=== PATIENT | female | born 1940 | race Caucasian/White ===

== ENCOUNTER 2018-12-02 07:46 | Emergency (ER) | payer OTHER ==
[2018-12-02 07:58] VITALS: BMI 23.4
--- NOTE | 2018-12-02 08:16 | PDOC ---
Attending Attestation - Resident Resident Name: Namita Borja - ED Attending Attestation I have performed the following: I have examined & evaluated the patient, The case was reviewed & discussed with the resident, I agree w/resident's findings & plan, Exceptions are as noted - HPI HPI: 12/02/18 08:39 78yo female with sinus congestion, L ear pain, dry cough x 2 weeks. States she took a course of abx at the beginning prescribed by her PMD - Dr. Veliz, which did not improve her symptoms. States she is also using a nasal spray, which helps her nasal congestion, but not the cough. Pt states cough is dry. NO f/c. No abd pain. No n/v/d. No dysuria. No freire. No cp/sob. Pt is nontoxic in appearance. C/o sore throat only when coughing. Pt c/o L ear fullness and pain x 2 weeks. Pt c/o sinus congestion and sinus pressure 12/02/18 09:36 - Physicial Exam PE: 12/02/18 09:36 Gen: aaox3, persian speaking, nad heent: PERRL, EOMI, nares with mild bogginess, TM intact no erythema or bulging or fluid, post pharynx clear- no erythema or exudates, frontal sinus ttp on palpation heart: +s2s2 reg lungs: cta b/l abd: soft, nt/nd +bs ext: no c/c/e neuro: grossly intact - Medical Decision Making 12/02/18 08:16 I, Dr. Celina Preston, DO, attest that this document has been prepared under my direction and personally reviewed by me in its entirety. I further attest, that it accurately reflects all work, treatment, procedures and medical decision -making performed by me. 12/02/18 09:38 a/p: 78yo female with cough- nonprodructive, sinus pressure, L ear pain -suspect L ear pain from sinus congestion and eustacian tube dysfunction- no acute otitis media or otitis externa -dry cough, will give albuterol -sick x 2 weeks, no fever, low suspicion for flu-out of the window for treatment , poss partially treated pna- will obtain xray -labs -ekg -will monitor and reassess 12/02/18 09:57 re-eval: cxr clear lungs cta pt feeling better discussed follow up with her PMD on Tuesday discussed all reasons to return to the ED will give albuterol inhaler for mild RAD with viral syndrome and bronchial cough discussed fluid intake and staying hydrated pt is nontoxic in appearance 12/02/18 09:59 repeat pulse ox 98% HR 100, but after albuterol Heart Score/ECG Review - ECG Intrepretation Comment:: 12/02/18 09:40 sinus at 95, nl axis, nl interval, pvc, no acute st/t wave findings
[2018-12-02] MEDS ORDERED: SODIUM CHLORIDE 0.9% 1000 ML INFUS.BAG IV ONE (08:18)
[2018-12-02] MEDS ORDERED: ALBUTEROL SO4 2.5/IPRATROPIUM 0.5 INH SOL 3 ML VIAL.NEB. NEB ONE ×2 (08:19→08:21)
--- NOTE | 2018-12-02 08:27 | PDOC ---
History of Present Illness - General Stated Complaint: COUGH Time Seen by Provider: 12/02/18 07:58 History Source: Patient - History of Present Illness Initial Comments: 12/02/18 08:23 Patient is a 78 y/o female with a history of HTN, HLD, and anemia who presents for cough. She reports she has been having this cough for two weeks. Her PCP gave her an antibiotic a week ago but it did not help. She also feels like she has sinus pressure and her left ear is clogged. She was feeling feverish. The cough is dry and she has some abdominal pain when she is coughing a lot. She denies any sick contacts. Denies nausea, vomiting, chest pain, diarrhea, or constipation. Past History - Past Medical History Allergies/Adverse Reactions: Allergies Allergy/AdvReac Type Severity Reaction Status Date / Time No Known Allergies Allergy Verified 12/02/18 07:58 Home Medications: Ambulatory Orders Albuterol Sulfate Inhaler - [Ventolin HFA Inhaler -] 1 - 2 inh PO Q4H #1 inhaler 12/02/18 Guaifenesin [Robitussin] 5 ml PO Q4H #2 cup 12/02/18 - Suicide/Smoking/Psychosocial Hx Smoking History: Never smoked Have you smoked in the past 12 months: No Information on smoking cessation initiated: No Hx Alcohol Use: No Drug/Substance Use Hx: No Review of Systems - Review of Systems Constitutional: Yes: Fever. No: Chills HEENTM: No: Eye Pain Respiratory: Yes: Cough. No: Shortness of Breath Cardiac (ROS): No: Chest Pain ABD/GI: No: Abdominal Distended, Constipated, Diarrhea, Nausea, Vomiting Musculoskeletal: No: Back Pain Neurological: No: Headache *Physical Exam - Vital Signs Last Vital Signs Temp Pulse Resp BP Pulse Ox 98.2 F 104 H 18 136/69 97 12/02/18 07:52 12/02/18 07:52 12/02/18 07:52 12/02/18 07:52 12/02/18 07:52 - Physical Exam Comments: 12/02/18 08:25 GENERAL: A&O x3, no acute distress HEENT: sinus pressure, R ear clear, L ear mildly erythematous, pharynx non erythematous NECK: no lymphadema HEART: RRR, no murmurs, rubs, or gallops LUNGS: CTAL B/L ABD: soft, non distended, non tender EXTREMITIES: no pitting edema SKIN: no rashes or ulcers noted ED Treatment Course - LABORATORY CBC & Chemistry Diagram: 12/02/18 08:44 12/02/18 08:44 - Medications Given in the ED: ED Medications Discontinued Medications Generic Name Dose Route Start Last Admin Trade Name Tim PRN Reason Stop Dose Admin Albuterol/Ipratropium 1 amp 12/02/18 08:19 12/02/18 08:20 Duoneb - NEB 12/02/18 08:20 1 amp ONCE ONE Administration Sodium Chloride 500 ml 12/02/18 08:18 12/02/18 08:20 Normal Saline - IV 12/02/18 08:19 500 ml ONCE ONE Administration Medical Decision Making - Medical Decision Making 12/02/18 08:27 albuterol treatment, f/u labs and CXR 12/02/18 09:38 CXR clear, WBC 10.2 12/02/18 10:24 CMP normal, likely viral illness medication for symptomatic relief and DC *DC/Admit/Observation/Transfer Diagnosis at time of Disposition: URI (upper respiratory infection) Qualifiers: URI type: unspecified viral URI Qualified Code(s): J06.9 - Acute upper respiratory infection, unspecified - Discharge Dispostion Condition at time of disposition: Guarded - Prescriptions Prescriptions: Albuterol Sulfate Inhaler - [Ventolin HFA Inhaler -] 1 - 2 inh PO Q4H #1 inhaler Guaifenesin [Robitussin] 5 ml PO Q4H #2 cup - Referrals Referrals: Magda Veliz MD [Primary Care Provider] - - Patient Instructions Printed Discharge Instructions: DI for Viral Upper Respiratory Infection -- Adult Additional Instructions: You came to the hospital for a cough. We took imaging ( Xray) of your lungs and you do not have an infection in your lungs. You likely have an viral infection that is causing the cough.This infection will resolve on its own. To help with the cough please take: Robitussin AC 5mL by mouth every 4 hours as needed, do not exceed 20 mL a day Albuterol inhaler, 1 puff by mouth every 4 hours as needed Please make an appointment with your primary care doctor in one week to follow up. Please return to the Emergency Department if you have chest pain, nausea, vomiting, diarrhea, shortness of breath, or dizziness. En Espanol Viniste al hospital por efrain tos. Tomamos imgenes (kip X) de ashok pulmones y usted no tiene efrain infeccin en los pulmones. Es probable que tenga efrain infeccin viral que est causando la tos. Esta infeccin se resolver por s jericho. Para ayudar con la tos por favor tome: Robitussin AC 5 ml por va oral cada 4 horas segn sea necesario, no exceda los 20 ml al da Inhalador de albuterol, 1 inhalacin por va oral cada 4 horas segn sea necesario Por favor daniel efrain poncho con garzon mdico de atencin primaria en efrain semana para darle seguimiento. Regrese al Departamento de Emergencias si tiene dolor en el pecho, nuseas, vmitos, diarrea, falta de aliento o mareos. - Post Discharge Activity
[2018-12-02] MEDS ORDERED: ACETAMINOPHEN 500 MG TABLET (FP) PO ONE (08:41)
[2018-12-02] MEDS ORDERED: ACETAMINOPHEN 325 MG TABLET (FP) PO ONE (08:50)
[2018-12-02 09:16] LABS: EOS % 0.9 % (0-4.5); HEMATOCRIT 36.8 % (32.4-45.2); LYMPH % 10.6 % (8-40); MCH 24.5 pg (25.7-33.7); MCHC 32.6 g/dl (32.0-36.0); MEAN CELL VOLUME 75.1 fl (80-96); MEAN PLT VOLUME 9.2 fl (7.5-11.1); MONO % 7.3 % (3.8-10.2); NEUT % 80.2 % (42.8-82.8); PLATELET COUNT 263 K/MM3 (134-434); RDW 14.6 % (11.6-15.6); WHITE BLOOD COUNT 10.2 K/mm3 (4.0-10.0)
[2018-12-02 09:38] LABS: ALBUMIN 3.6 g/dl (3.4-5.0); ALK PHOS 65 U/L (45-117); ANION GAP 8 MMOL/L (8-16); BILIRUBIN,TOTAL 0.2 mg/dL (0.2-1); BLOOD UREA NITROGEN 11 mg/dL (7-18); CALCIUM 9.1 mg/dL (8.5-10.1); CHLORIDE 106 mmol/L (98-107); CO2 27 mmol/L (21-32); CREATININE 0.7 mg/dL (0.55-1.3); GLUCOSE,RANDOM 78 mg/dL (74-106); MAGNESIUM 2.1 mg/dL (1.8-2.4); POTASSIUM 4.1 mmol/L (3.5-5.1); SGOT/AST 16 U/L (15-37); SGPT/ALT 22 U/L (13-61); SODIUM 140 mmol/L (136-145); TOT PROT 6.9 g/dl (6.4-8.2)
[2018-12-02 10:00] VITALS: BP 119/63; PULSE 100; TEMP 98.6
--- NOTE | 2018-12-04 10:24 | EKG ---
Test Reason : Blood Pressure : / mmHG Vent. Rate : 095 BPM Atrial Rate : 095 BPM P-R Int : 122 ms QRS Dur : 082 ms QT Int : 336 ms P-R-T Axes : 075 034 035 degrees QTc Int : 422 ms SINUS RHYTHM WITH OCCASIONAL PREMATURE VENTRICULAR COMPLEXES OTHERWISE NORMAL ECG NO PREVIOUS ECGS AVAILABLE Confirmed by JARRETT SOLANO MD ([id number]) on 12/04/2018 10:24:10 AM Referred By: Confirmed By:JARRETT SOLANO MD
== END 2018-12-02 10:24 | disposition home or self-care (01) ==
LOC: JER 07:46
PROC: 3E0F7GC Introduction of Other Therapeutic Substance into Respiratory Tract, Via Natural or Artificial Opening (ICD-10-PCS; principal; 2018-12-02)
DX: J06.9 Acute upper respiratory infection, unspecified (principal); B97.89 Other viral agents as the cause of diseases classified elsewhere; I10 Essential (primary) hypertension; E78.5 Hyperlipidemia, unspecified
CPT/HCPCS: 36415; 71046-TC-FY; 80053; 83735; 85025; 93005; 93010; 94640; 99282-25; J7030

== ENCOUNTER → 2019-06-25 | Day surgery (SDC) | payer OTHER ==
--- NOTE | 2019-06-26 17:46 | PATH ---
Surgical Pathology Report Patient Name: DEIRDRE IQBAL [facility]. Rec. #: [id number] /Age/Gender: 1940 (Age: 78) / F Account: [id number] Location: RAD[facility]OLOGY [facility] Taken: 06/25/2019 Received: 06/25/2019 Reported: 06/26/2019 Physicians: Ya Arndt M.D. Specimen(s) Received BREAST CORE BIOPSY Clinical History Nonpalpable lesion Ultrasound findings: Probably benign Final Diagnosis LEFT BREAST 12-1:00, 0.95 CM SOLID MASS, ULTRASOUND GUIDED CORE BIOPSY: BENIGN BREAST TISSUE WITH USUAL DUCTAL HYPERPLASIA (UDH), STROMAL FIBROSIS, AND FIBROADENOMATOID CHANGE. Electronically Signed Gill Granados M.D. Gross Description Received in formalin labeled "left 12:30," are 4 santos-yellow, cylindrical portions of fibroadipose tissue ranging from 0.5-1.1 cm in length and averaging 0.1 cm in diameter. The specimens are submitted in toto in one cassette. Time to formalin fixation: Less than one minute Total formalin fixation time: Approximately 7 hours. /06/25/2019 saudi/06/25/2019
== END | disposition home or self-care (01) ==
LOC: JRADUS-SUR 10:30 → JRAD 10:30
PROVIDERS: ATTEND Internal Medicine
PROC: 0HBU3ZX Excision of Left Breast, Percutaneous Approach, Diagnostic (ICD-10-PCS; principal; 2019-06-25)
DX: N60.12 Diffuse cystic mastopathy of left breast (principal); N60.31 Fibrosclerosis of right breast; N60.82 Other benign mammary dysplasias of left breast; N64.89 Other specified disorders of breast; N63.21 Unspecified lump in the left breast, upper outer quadrant
CPT/HCPCS: 19083; 87899; 88305-TC; A4648